=== PATIENT | female | born 1975 | race Native Hawaiian/Other Pacific Islander ===

== ENCOUNTER 2016-12-14 13:13 | Outpatient (CLI) | payer OTHER ==
[2016-12-14 13:24] LABS: PLATELET COUNT 211 K/uL (152-353)
[2016-12-14 13:54] LABS: POTASSIUM 4.9 mmol/L (3.6-5.2); SODIUM 135 mmol/L (136-145)
== END 2016-12-14 19:10 | disposition home or self-care (01) ==
LOC: LAB 13:13
PROVIDERS: Nurse Practitioner Family
DX: E11.9 Type 2 diabetes mellitus without complications (principal); E78.4 Other hyperlipidemia; Z79.899 Other long term (current) drug therapy; Z51.81 Encounter for therapeutic drug level monitoring
CPT/HCPCS: 80053; 80061; 83036; 84439; 84443; 85027